=== PATIENT | male | born 1990 | race Two or more races ===

== ENCOUNTER 2017-11-17 15:33 | Emergency (ER) | payer OTHER ==
[2017-11-17 15:42] VITALS: BP 135/78
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
[2017-11-17] MEDS ORDERED: CEPHALEXIN 500 MG CAPSULE PO ONE (16:11)
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
== END 2017-11-17 16:36 | disposition home or self-care (01) ==
LOC: ER 15:33
DX: S69.91XA Unspecified injury of right wrist, hand and finger(s), initial encounter (principal); X58.XXXA Exposure to other specified factors, initial encounter
CPT/HCPCS: 99283